=== PATIENT | female | born 1985 | race Caucasian/White ===

== ENCOUNTER → 2016-12-04 | Outpatient (CLI) | payer OTHER ==
[~2016-12-04] MED LIST: ACET-749 PO; HYDR-5688 PO; MTR600X PO; PRENTAB26 PO
--- NOTE | 2016-12-04 13:27 | MAMMOGRAPHY REPORT ---
BILATERAL DIGITAL DIAGNOSTIC MAMMOGRAM TOMOSYNTHESIS WITH CAD AND TARGETED LEFT ULTRASOUND: 12/04/2016 CLINICAL HISTORY: 31 year-old woman presents for diagnostic evaluation. Approximately 2 months ago s he noticed an indentation or retraction of her left nipple, which is asymmetric compared to the right side. On recent physical exam, her provider also noted the retraction and recommended diagnostic as sessment. No skin changes or nipple discharge. No family history of breast cancer. TECHNIQUE: Bilateral breast tomosynthesis in addition to standard 2D mammography was performed. Curre nt study was also evaluated with a Computer Aided Detection (CAD) system. COMPARISON: No prior exams were available for comparison. BREAST COMPOSITION: The tissue of both breasts is heterogeneously dense, which may obscure small mas ses. FINDINGS: There is no obvious mammographic mass, focal area of architectural distortion or suspiciou s microcalcifications. Targeted ultrasound was performed in the periareolar and subareolar left breast. In the left retroar eolar breast, there is a lobulated circumscribed hypoechoic solid-appearing mass with posterior acous tic enhancement directly under the nipple. It measures 11.5 x 7.2 x 11.6 mm. It is unclear if this is related to the nipple retraction but given the solid nature definitive characterization with tissu e sampling is recommended. IMPRESSION: ACR BI-RADS CATEGORY 4: SUSPICIOUS, TARGETED ULTRASOUND ACR BI-RADS CATEGORY 4: SUSPICIO US 1. Ultrasound guided core biopsy is recommended for an indeterminate solid 11.6 mm mass in the retro areolar left breast. It is unclear if this is related to the patient's nipple retraction, and clinic al follow-up may still be needed for that finding. This mass is not well seen mammographically. 2. No other suspicious mammographic abnormality identified bilaterally. These results and recommendations were discussed with the patient at the time of the exam. She tenta tively schedule the left breast biopsy prior to leaving our department. Approximately 10% of breast cancers are not detected with mammography. A negative mammographic report should not delay biopsy if a clinically suggestive mass is present. Ella Bettencourt M.D. ay/:12/04/2016 11:59:40 Geopolitics Teacher: Aggie Chamberlain, [facility] letter sent: Abnormal 4/5 BI-RADS Code: ACR BI-RADS Category 4: Suspicious Ultrasound BI-RADS: ACR BI-RADS Category 4: Suspici ous
== END | disposition home or self-care (01) ==
LOC: C.MAMM 11:19
PROVIDERS: ATTEND Physician Assistant
DX: N64.53 Retraction of nipple (principal); N63 Unspecified lump in breast

== ENCOUNTER → 2016-12-16 | Outpatient (CLI) | payer OTHER ==
--- NOTE | 2016-12-16 11:49 | Discharge Instructions ---
Discharge Instructions Procedure Procedure Date: Dec 16, 2016. Reason for visit: Left Mass. Discharge Discharge Date: Dec 16, 2016. Discharge Diagnosis: post left breast ultrasound guided core biopsy Instructions Activity Recommendations: Additional Limitations (see below) Return to School/Work: no limitations Recommended Home Diet: No Limitations Provider Instructions: ACTIVITY RECOMMENDATIONS: * No lifting, pushing, pulling or exercising the affected side for three days. RETURN TO SCHOOL/WORK: * You may return to work/school after the procedure, but do not perform any strenuous activities for 24 to 48 hours. MEDICATIONS: * Tylenol (two 325 mg) every four to six hours if needed for mild pain (if not allergic to Tylenol). DIET: * Resume previous diet. SPECIAL CARE INSTRUCTIONS: * Keep biopsy site dry for 24 hours. May shower after 24 hours, but do not soak (bathe) incision. * May remove Tegaderm (plastic patch) tomorrow AFTER showering. * Leave the steri-strips on for one week. Allow the steri-strips to fall off by themselves. If not off after one week, you may remove them. You may place a Bandaid crosswise over the strips, if desired. * Apply ice 10 minutes on and 10 minutes off as needed. * Wear a bra at bedtime to sleep more comfortably for 2-3 days. * Your referring physician should have the results after approximately 5 to 7 business days. * Call for unusual bleeding, fever, drainage, etc or if you have any questions call [phone] during normal business hours or after hours call Dr Bettencourt, . FOLLOW UP VISIT: Follow-up with Referring Physician as scheduled. Allergies Coded Allergies: No Known Allergies (Verified , 09/25/15) Mary Bejarano Recommendations: Call your doctor if: * Temperature above 101 degrees * Pain not relieved by pain medicine ordered * There is increased drainage or redness from any incision * You have any unanswered questions or concerns. Your Doctors Instructions noted above were prepared by provider Ella Bettencourt. Patient Signature Section: Patient Instructions Signature Page Annita Davisn Patient (or Guardian) Signature/Date: I have read and understand the instructions given to me by my caregivers. Caregiver/RN/Doctor Signature/Date: The above-named patient and/or guardian has received patient instructions on this date. + Original Patient Signature Page (only) stays with chart. Please make copy for patient.
--- NOTE | 2016-12-16 13:16 | MAMMOGRAPHY REPORT ---
THIS REPORT HAS BEEN AMENDED. ULTRASOUND GUIDED BIOPSY LEFT BREAST: 12/16/2016 CLINICAL HISTORY: 31 year old woman initially presented with left nipple retraction. She was found t o have a circumscribed solid 12 mm mass in the retroareolar left breast and now presents for ultrasou nd-guided core biopsy. COMPARISON: Comparison is made to exams dated: 12/04/2016 ultrasound and 12/04/2016 mammogram [facility]. PATIENT CONSENT: The procedure, risks and benefits were discussed with the patient and informed writt en consent was obtained. Specific risks to this procedure include: bleeding, infection, puncture of a djacent structure, nontargeted biopsy, sampling error, pain, medication reaction and metal allergy. PROCEDURE DESCRIPTION: A time out was performed and the left breast was agreed as the site of biopsy. The skin was prepped and draped in the usual sterile fashion. The solid mass in the retroareolar lef t breast was chosen as the target for biopsy. Subcutaneous and intraparenchymal 1% buffered lidocaine without epinephrine was administered as local anesthesia. A skin incision was made. Through the inc ision, 4 samples were taken with a 14 gauge Achieve biopsy device. A metallic marker was placed at th e biopsy site. Hemostasis was achieved after manual compression. The patient tolerated the procedure well and there was no immediate complication. The samples were sent to pathology in an appropriately labeled container. Post procedure left CC and ML tomosynthesis images were obtained. A new ribbon-shaped biopsy marker clip and no significant hematoma is seen in the retroareolar left breast. COMPARISON: Comparison is made to exams dated: 12/04/2016 ultrasound and 12/04/2016 mammogram - [facility]. An ultrasound guided biopsy using real-time ultrasound was performed for the abnormality located in t he left breast central to the nipple in the retroareolar region. The skin was prepped in the usual m sakina. A biopsy needle was placed adjacent to the abnormality under ultrasound guidance. Once the n eedle was documented to be in the correct location, a specimen was obtained using an automated biopsy gun. The specimen was sent to the laboratory for pathological analysis. IMPRESSION: ULTRASOUND GUIDED BIOPSY Status post ultrasound guided core biopsy of an indeterminate solid mass in the left retroareolar alison ast, with biopsy marker placed at the site. The patient will receive notification of the biopsy results from her referring physician. It remains unclear if this mass is related to the patient's left nipple retraction and clinical follo w-up is still recommended. Ella Bettencourt M.D. ay/:12/16/2016 12:05:57 Linesperson: Aggie Chamberlain, [facility] AMENDMENT: 12/25/2016 Ella Bettencourt M.D. Pathology results from the ultrasound guided core biopsy of a circumscribed mass in the retroareolar left breast yielded a squamous cyst. The pathology results are concordant with the imaging appearanc e. However, the patient initially presented with new left nipple retraction and it is unclear if thi s squamous cyst could cause the left breast nipple retraction. Therefore, further evaluation with anderson rgical consultation is recommended. These new recommendations were discussed with the patient's prov ider, Onel Witt.
--- NOTE | 2016-12-16 13:16 | MAMMOGRAPHY REPORT ---
UNILATERAL LEFT DIGITAL DIAGNOSTIC MAMMOGRAM TOMOSYNTHESIS: 12/16/2016 CLINICAL HISTORY: Status post ultrasound guided core biopsy of a solid circumscribed mass in the retr oareolar left breast. Please refer to the report from left breast ultrasound guided core biopsy performed at the same time for full detail. IMPRESSION: POST PROCEDURE IMAGING FOR MARKER PLACEMENT Please refer to the report from left breast ultrasound guided core biopsy performed at the same time for full detail. Approximately 10% of breast cancers are not detected with mammography. A negative mammographic report should not delay biopsy if a clinically suggestive mass is present. Ella Bettencourt M.D. ay/:12/16/2016 11:50:11 Microstrategy Architect: Aggie Chamberlain, [facility] BI-RADS Code: Post Procedure Imaging For Marker Placement
== END | disposition home or self-care (01) ==
LOC: C.MAMM 10:52
PROVIDERS: ATTEND Physician Assistant
DX: N63 Unspecified lump in breast (principal)

== ENCOUNTER → 2017-02-18 | Day surgery (SDC) | payer OTHER ==
[2017-01-31 12:46] VITALS: Ht 165.1 cm; Wt 53.2 kg
[~2017-02-18] VITALS: Ht 165.1 cm; Wt 53.2 kg
[~2017-02-18] MED LIST changes: -ACET-749 PO; +ATROPINE SULFATE 0.1 MG/ML 5ML SYR IV PRN; +BUPIVACAINE 0.25% 30 ML VIAL ONE; +BUPIVACAINE 0.5 % 5 MG/1 ML MPF 30ML VIAL ONE; +CEFAZOLIN 2000 MG/60 ML D5W IV SCH; +DEXAMETHASONE SOD INJ 4 MG/ML VIAL ONE; +EpHEDrine SULFATE INJ 50 MG/ML AMP IV PRN; +FENTANYL CITRATE INJ 50 MCG/1 ML 2 ML VIAL ONE; +FLUMAZENIL 0.1 MG/1 ML 10 ML VIAL IV PRN; +GENTIAN VIOLET TOP SOLN DROP CHARGE ONE; +HYDROCODONE/ACETAMOPHEN 5/325MG TAB PO PRN; +HYDROmorphone INJ 1 MG/ML SYR IV PRN; +LACTATED RINGER'S 1000ML 1,000 ML IV SCH; +LIDOCAINE HCL 1% 20 ML VIAL ONE; +LIDOCAINE HCL 2% 2 ML VIAL (20MG/ML) ONE; +LIDOCAINE/EPINEPHRINE 1% INJ 50 ML VIAL ONE; +MIDAZOLAM HCL 1 MG/ML 2ML VIAL ONE; -MTR600X PO; +NALOXONE HCL 0.4 MG/1 ML VIAL/CARP IV PRN; +ONDANSETRON INJ 2 MG/ML 2 ML VIAL IV PRN; +ONDANSETRON INJ 2 MG/ML 2 ML VIAL ONE; -PRENTAB26 PO; +PROMETHAZINE HCL INJ 12.5 MG in SODIUM CHLORIDE 0.9% 50ML 50 ML IV PRN; +PROPOFOL IV EMULSION 10 MG/ML 20 ML VIAL IV ONE; +SODIUM CHLORIDE 0.9% 1000ML 1,000 ML IV SCH
--- NOTE | 2017-02-18 11:42 | History & Physical Bridge - SC ---
H&P Re-Evaluation Bridge Note: I have examined the patient, reviewed the History & Physical and in the interval since the performance of the History & Physical I have noted the following changes of clinical significance: No changes noted
--- NOTE | 2017-02-18 12:35 | [facility] Operative Report ---
Operative Report Operative Date Feb 18, 2017. Pre-Operative Diagnosis Lef Breast Squamous Cyst; Retraction of Nipple, Left Post-Operative Diagnosis same as preop Procedure(s) Performed excision Lt breast mass (Dr Plasencia) repair inverted nipple (Dr Aguilera) Surgeon Dr. Plasencia/Dr. Aguilera Maintenance Shop Clerk Surgeon(s) Trish Guzman PA-C Findings 1.5 cm mass- likely epidermoid cyst Specimens A: Left Breast Mass (out at 1215), sent fresh to lab. Anesthesia gen/ LMA Complication(s) None Disposition Recovery Room / PACU I attest to the content of the Intraoperative Record and any orders documented therein. Any exceptions are noted below.
--- NOTE | 2017-02-18 12:37 | [facility] Post Operative Brief Note ---
Immediate Operative Summary Operative Date Feb 18, 2017. Pre-Operative Diagnosis Lef Breast Squamous Cyst; Retraction of Nipple, Left Post-Operative Diagnosis same as preop Procedure(s) Performed excision Lt breast mass (Dr Plasencia) repair inverted nipple (Dr Aguilera) Surgeon Dr. Plasencia/Dr. Aguilera Notch Machine Operator Surgeon(s) Trish Guzman PA-C Estimated Blood Loss 1ML Findings cyst beneath left nipple Specimens A: Left Breast Mass (out at 1215), sent fresh to lab. Anesthesia general Complication(s) None Disposition Recovery Room / PACU
--- NOTE | 2017-02-18 12:43 | Discharge Instructions-SurgCtr ---
Discharge Instructions Date of Service Feb 18, 2017. Visit Reason for Visit: Left Breast Squamous Cyst; Retraction Of Nipple Discharge Discharge Diagnosis / Problem: Lt breast mass, inverted nipple Discharge Goals Goal(s): Decrease discomfort, Improve function, Improve disease control Activity Recommendations Activity Limitations: as noted below Lifting Limitations: no more than 10 pounds Exercise/Sports Limitations: until after follow-up appointment May Resume Sexual Activity: after follow-up appointment Shower/Bathe: keep incision dry (until after Dr Aguilera checks you) Driving or Machine Use: resume 1 day after discharge Anesthesia . Post Anesthesia Instructions: If you have had General Anesthesia or IV Sedation: * Do not drive today. * Resume driving when surgeon permits. * Do not make important decisions or sign legal documents today. * Call surgeon for: 1. Temperature elevations greater than 101 degrees F. 2. Uncontrollable pain. 3. Excessive bleeding. 4. Persistent nausea and vomiting. 5. Medication intolerance (nausea, vomiting or rash). * For nausea and vomiting use only clear liquids such as: tea, soda, bouillon until nausea subsides, then gradually increase diet as tolerated. * If you have any concerns or questions, call your surgeon's office. If physician is unavailable and it is an emergency, call 911 or go to the nearest emergency room. . Instructions / Follow-Up Instructions / Follow-Up keep appointment with Dr Aguilera Diet Recommendations Home Diet: resume previous diet Procedures Procedures Performed: excision Lt breast mass (Dr Plasencia) repair inverted nipple (Dr Aguilera) Pending Studies Studies pending at discharge: no Medical Emergencies . Who to Call and When: Medical Emergencies: If at any time you feel your situation is an emergency, please call 911 immediately. . Non-Emergent Contact Non-Emergency issues call your: Primary Care Provider, Surgeon . . "Provider Documentation" section prepared by Rajinder Plasencia. .
--- NOTE | 2017-02-18 13:04 | OPERATIVE REPORT ---
DATE OF OPERATION: 02/18/2017 NAME OF OPERATION: Excision of left breast mass with plastic surgery repair of inverted nipple. STAFF SURGEON: Dr. Plasencia and Dr. Aguilera. CHEMOTHERAPIST: Trish Guzman PA-C. ANESTHESIA: General. PROCEDURE: The patient was brought in the operating room and placed on the operating table in supine position. Her left breast was prepped and draped in usual fashion around a needle which had been placed at approximately 3 o'clock into the left subareolar space. Incision was made at the base of the needle from approximately 7 o'clock to 2 o'clock carrying dissection down into the area just below the nipple identifying what appeared to be a sebaceous cyst. The needle was transected. The cyst was dissected from surrounding tissue, sent for routine pathology. After appropriate hemostasis and irrigation, Dr. Aguilera proceeded with plastic surgery closure of the inverted nipple. The patient tolerated the procedure well, was taken to the recovery room in stable condition. I attest to the content of the Intraoperative Record and any orders documented therein. Any exception s are noted below.
[2017-02-18 13:12] VITALS: TEMP 36.6
--- NOTE | 2017-02-18 13:25 | Anesthesia Progress Nt - [facility] ---
Anesthesia Post Op Note Date & Time Feb 18, 2017 at 13:25 Vital Signs Pain Intensity: 0 Vital Signs Past 12 Hours Date Time Temp Pulse Resp B/P (MAP) Pulse Ox O2 Delivery O2 Flow Rate FiO2 02/18/17 13:07 83 21 96 02/18/17 13:07 82 21 02/18/17 13:06 121/75 02/18/17 13:06 121/75 02/18/17 13:05 37.5 97 Room Air 02/18/17 13:02 84 18 02/18/17 13:02 81 18 97 02/18/17 13:02 84 18 02/18/17 13:02 81 18 97 02/18/17 13:01 121/64 02/18/17 12:58 80 19 02/18/17 12:58 79 19 98 02/18/17 12:56 118/65 02/18/17 12:53 82 18 02/18/17 12:53 83 18 100 02/18/17 12:52 76 16 02/18/17 12:52 74 16 100 02/18/17 12:51 111/66 02/18/17 12:47 82 17 100 02/18/17 12:47 82 17 02/18/17 12:46 120/61 02/18/17 12:43 118/63 02/18/17 12:42 83 02/18/17 12:42 36.8 82 18 118/63 99 Mask 6 02/18/17 12:42 83 98 02/18/17 10:23 36.5 80 16 114/65 (81) 99 Room Air Notes Mental Status: alert / awake / arousable, participated in evaluation Pt Amnestic to Procedure: Yes Nausea / Vomiting: adequately controlled Pain: adequately controlled Airway Patency, RR, SpO2: stable & adequate BP & HR: stable & adequate Hydration State: stable & adequate Anesthetic Complications: no major complications apparent
[2017-02-18 13:45] VITALS: BP 110/71; PULSE 72; O2SAT 97
--- NOTE | 2017-02-18 14:33 | OPERATIVE REPORT ---
DATE OF OPERATION: 02/18/2017 PREOPERATIVE DIAGNOSIS: Left breast mass with nipple inversion. POSTOPERATIVE DIAGNOSIS: Same. PROCEDURE: Excision of left breast mass with correction of inverted nipple. SURGEONS: Dr. Sandie Aguilera and Dr. Rajinder Plasencia. PST MANAGER: Trish Guzman. LILI-Marcelo ANESTHESIA: General. COMPLICATIONS: None. INDICATION FOR THE PROCEDURE: The patient is a 31-year-old female who was noted to have a subareolar mass and was scheduled to have this excised. Due to the nipple retraction and inversion as a result of formation of this mass, I was consulted for possible correction. Consent was obtained for the procedure. DESCRIPTION OF PROCEDURE: I was scrubbed throughout the entire procedure including the excision of the mass. Incision was made from the 7 o'clock to [address] Plasencia, who identified the cyst. His cyst excision has been separately dictated. Following removal of the cyst, this resulted in transection of the duct allowing release of the tethered nipple. At this point, I used a 3-0 Vicryl suture to close the subareolar space. Following this, I placed horizontal mattress sutures through the nipple-areolar complex through the nipple in order to provide projection. I then closed the incision using 3-0 Vicryl interrupted dermal sutures and 4-0 chromic half buried horizontal mattress sutures. Following this, I was dissatisfied with the projection of the nipple and the nipple sutures were released and placed again taking deeper bites through the base of the nipple to allow greater projection. Once this was completed, the wound was dressed with Xeroform, dry dressings, and [place] foam. Surgical bra was placed. The procedure was tolerated well. The patient was awakened and transferred to recovery in satisfactory condition. I attest to the content of the Intraoperative Record and any orders documented therein. Any exception s are noted below.
--- NOTE | 2017-02-18 16:08 | MAMMOGRAPHY REPORT ---
UNILATERAL LEFT DIGITAL DIAGNOSTIC MAMMOGRAM TOMOSYNTHESIS: 02/18/2017 CLINICAL HISTORY: Preoperative needle and wire localization for a biopsy proven squamous cyst in the retroareolar left breast. Please refer to the report from left breast ultrasound-guided needle localization with imaging perfor med at the same time for full detail. IMPRESSION: Please refer to the report from left breast ultrasound-guided needle localization with imaging perfor med at the same time for full detail. Approximately 10% of breast cancers are not detected with mammography. A negative mammographic report should not delay biopsy if a clinically suggestive mass is present. Ella Bettencourt M.D. ay/:02/18/2017 12:58:09 Boxing Instructor: Aggie WEBBER(Cindy)(M), [facility] BI-RADS Code: n/a
--- NOTE | 2017-02-18 16:08 | MAMMOGRAPHY REPORT ---
NEEDLE LOCALIZATION LEFT BREAST: 02/18/2017 CLINICAL HISTORY: 31 year-old woman presents for preoperative localization and surgical excision of a squamous cyst in the subareolar left breast. COMPARISON: Comparison is made to exams dated: 12/04/2016 mammogram, 12/04/2016 ultrasound, 12/16/2016 mammogram, and 12/16/2016 ultrasound biopsy - [facility]. PATIENT CONSENT: The risks of the procedure were explained to the patient and informed consent was ob tained. The patient denied allergy to lidocaine and also denied eating or drinking anything this mor jessy that would preclude anesthesia. PROCEDURE DESCRIPTION: Post procedure mammograms and ultrasound core biopsy dated 12/16/2016 were rev iewed. The mass in the subareolar left breast is the intended target for preoperative localization. Targeted ultrasound was performed in the subareolar left breast and a lobulated hypoechoic mass with posterior acoustic enhancement is again identified. This is the target for preoperative localizatio n. 1% buffered Lidocaine without epinephrine was administered as local anesthesia. A 5cm Herrera II needle and wire combination was inserted into the left breast, through the subareolar mass, via a lat eral approach. Optimal positioning was confirmed and the wire was locked in place, leaving both the needle and wire within the breast, as per surgeon's preference. The entire procedure including appro ach and needle length were discussed with the operating surgeon prior to surgery. The patient tolera rowena the procedure well and there was no immediate complication. She was sent to the operating room i n satisfactory condition. A specimen radiograph was not obtained. IMPRESSION: NEEDLE LOCALIZATION Status post preoperative needle and wire localization for a biopsy proven squamous cyst in the subare olar left breast. The patient will receive notification of the final pathology results from her referring physician. Ella Bettencourt M.D. ay/:02/18/2017 14:42:10 Metal Or Wood Blocker: Aggie WEBBER(Cindy)(Mildred), [facility]
== END | disposition home or self-care (01) ==
LOC: X.SURG 09:52
PROVIDERS: ATTEND Surgery
DX: N60.02 Solitary cyst of left breast (principal); N64.53 Retraction of nipple; Z87.891 Personal history of nicotine dependence; Z80.3 Family history of malignant neoplasm of breast

== ENCOUNTER → 2017-07-28 | Outpatient (CLI) | payer OTHER ==
[~2017-07-28] MED LIST changes: -ATROPINE SULFATE 0.1 MG/ML 5ML SYR IV PRN; -BUPIVACAINE 0.25% 30 ML VIAL ONE; -BUPIVACAINE 0.5 % 5 MG/1 ML MPF 30ML VIAL ONE; -CEFAZOLIN 2000 MG/60 ML D5W IV SCH; -DEXAMETHASONE SOD INJ 4 MG/ML VIAL ONE; -EpHEDrine SULFATE INJ 50 MG/ML AMP IV PRN; -FENTANYL CITRATE INJ 50 MCG/1 ML 2 ML VIAL ONE; -FLUMAZENIL 0.1 MG/1 ML 10 ML VIAL IV PRN; -GENTIAN VIOLET TOP SOLN DROP CHARGE ONE; -HYDROCODONE/ACETAMOPHEN 5/325MG TAB PO PRN; -HYDROmorphone INJ 1 MG/ML SYR IV PRN; -LACTATED RINGER'S 1000ML 1,000 ML IV SCH; -LIDOCAINE HCL 1% 20 ML VIAL ONE; -LIDOCAINE HCL 2% 2 ML VIAL (20MG/ML) ONE; -LIDOCAINE/EPINEPHRINE 1% INJ 50 ML VIAL ONE; -MIDAZOLAM HCL 1 MG/ML 2ML VIAL ONE; -NALOXONE HCL 0.4 MG/1 ML VIAL/CARP IV PRN; -ONDANSETRON INJ 2 MG/ML 2 ML VIAL IV PRN; -ONDANSETRON INJ 2 MG/ML 2 ML VIAL ONE; -PROMETHAZINE HCL INJ 12.5 MG in SODIUM CHLORIDE 0.9% 50ML 50 ML IV PRN; -PROPOFOL IV EMULSION 10 MG/ML 20 ML VIAL IV ONE; -SODIUM CHLORIDE 0.9% 1000ML 1,000 ML IV SCH
--- NOTE | 2017-07-28 15:04 | MAMMOGRAPHY REPORT ---
BILATERAL DIGITAL DIAGNOSTIC MAMMOGRAM TOMOSYNTHESIS WITH CAD: 07/28/2017 CLINICAL HISTORY: 31-year-old woman with a palpable epidermal inclusion cyst in the retroareolar left breast that was subsequently surgically excised. She presents to establish new baseline after surge ry. TECHNIQUE: Bilateral breast tomosynthesis in addition to standard 2D mammography was performed. Curre nt study was also evaluated with a Computer Aided Detection (CAD) system. COMPARISON: Comparison is made to exams dated: 02/18/2017 mammogram, 02/18/2017 localization, 7 ultrasound biopsy, 12/16/2016 mammogram, 12/04/2016 ultrasound, and 12/04/2016 mammogram - [facility]. BREAST COMPOSITION: The tissue of both breasts is heterogeneously dense, which may obscure small mas ses. FINDINGS: A linear scar marker overlies the lateral anterior left breast. No obvious new mass, archi tectural distortion or , asymmetry cluster of suspicious microcalcifications is seen. IMPRESSION: ACR BI-RADS CATEGORY 2: BENIGN There is no mammographic evidence of malignancy in the breasts. Unless there is a new palpable bob rn, would recommend annual screening mammography beginning at age 40. The patient has been verbally notified of the results. Approximately 10% of breast cancers are not detected with mammography. A negative mammographic report should not delay biopsy if a clinically suggestive mass is present. Ella Bettencourt M.D. ay/:07/28/2017 14:36:53 Innersole Maker: Denisha WEBBER(Cindy)(Mildred), [facility] letter sent: Normal 1/2 BI-RADS Code: ACR BI-RADS Category 2: Benign
== END | disposition home or self-care (01) ==
LOC: C.MAMM 13:49
PROVIDERS: ATTEND Physician Assistant
DX: Z09 Encounter for follow-up examination after completed treatment for conditions other than malignant neoplasm (principal); Z98.890 Other specified postprocedural states; Z87.898 Personal history of other specified conditions

== ENCOUNTER 2025-05-30 07:30 | Inpatient (IN) ==
[2025-05-30] MEDS ORDERED: LIDOCAINE 1% LOCAL 20 ML VIAL INFIL PRN (07:39)
[2025-05-30] MEDS ORDERED: ACETAMINOPHEN 500 MG TAB PO PRN (07:39)
[2025-05-30] MEDS ORDERED: CALCIUM CARBONATE 500 MG CHEWABLE TAB PO PRN (07:39)
[2025-05-30] MEDS ORDERED: OXYTOCIN 30 UNITS/NSS 30 UNITS/500 ML BAG IV PRN ×2 (07:39→14:35)
[2025-05-30 08:08] LABS: Hematocrit (blood only) 36.1 % (37.0-47.0); Hemoglobin 12.6 g/dL (12.0-16.0); Mean Corpuscular Hemoglobin 30.9 pg (25.0-34.0); Mean Corpuscular Volume 88.5 fL (80.0-100.0); Platelet Count 299 K/uL (130-400); RDW Standard Deviation 47.2 fL (36.4-46.3); Red Blood Count 4.08 M/uL (4.20-5.40); White Blood Count 10.96 K/ul (4.8-10.8)
[2025-05-30] MEDS: PENICILLIN GK 6 MU in DEXTROSE 5% 250 ML IV STA (08:23)
[2025-05-30] MEDS: LACTATED RINGER'S 1,000 ML IV PRN (08:24)
[2025-05-30] MEDS: OXYTOCIN 30 UNITS/NSS 30 UNITS/500 ML BAG IV PRN (08:49)
--- NOTE | 2025-05-30 09:25 | History & Physical Report ---
Date of Service May 30, 2025 Assessment & Plan (1) Polyhydramnios affecting : Plan: Admit to L&D. EFM/toco. Labs. Glucose on admit and hourly in active labor. Penicillin for GBS+ Pitocin OK for epidural if she desires. (2) Elderly multigravida: Admission and Anticipated Discharge Date Admission Date: May 30, 2025 History of Present Illness Chief Complaint: IOL Primary Care Provider: NO PCP 39yo @ 37 08/27, IOL for polyhydramnios and AMA. and Delivery Plans AMA>40@del *Anatomy Scan @ 20wks * Echo 22-24wks (02/15/25 @ [facility] [place]---normal *Growth scan @32wks - EFW 22% at 30wk - JBS *Weekly NST's @36 wks *Twice weekly NST @38wks *Weekly GILBERT's @38wks *Deliver by 40 wks Current smoker Gestational Diabetes Growth u/s q 4 weeks Polyhydramnios *Weekly NSTs if fluid 12 or greater - started at 31w4d - JBS *Weekly AFIs @ Dx *If pocket >16 refer to MFM *Deliver between [id number] IOL 05/30/25 GBS+ - Treat in labor Allergies Allergy/AdvReac Type Severity Reaction Status Date / Time No Known Allergies Allergy Verified 05/27/25 08:31 Home Medications Medication Instructions Recorded Confirmed Type PNV no.[id number] 1 tab PO 10/20/24 05/27/25 History [ Gummies] acetone (urine) test (Ketone Urine #50 ea 03/18/25 05/27/25 Rx Test strips) blood-glucose meter (True Metrix #1 ea 03/21/25 05/27/25 Rx Glucose Meter) ferrous sulfate 325 mg (65 mg 325 mg PO Q OTHER DAY 03/28/25 05/30/25 History iron) tablet (FeroSul) blood sugar diagnostic (True #400 ea 04/22/25 05/27/25 Rx Metrix Glucose Test Strip) lancets 28 gauge (TRUEplus Lancets) #400 ea 04/22/25 05/27/25 Rx Patient History Medical History (Updated 05/16/25 @ 14:05 by Tanisha Hagan DO) History of chicken pox Cyclical pelvic pain Toe contusion Crush injury of hand Wrist sprain Lytic bone lesions on xray TFCC (triangular fibrocartilage complex) injury Paresthesias Migraine headache Surgical History (Updated 10/20/24 @ 13:24 by Erin Cordero) S/P breast lumpectomy S/P wisdom tooth extraction H/O dilation and curettage MAB x2 H/O shoulder surgery Family History (Updated 10/20/24 @ 13:12 by Erin Cordero) Brother FH: testicular cancer Father FH: testicular cancer Family/Other Breast cancer Paternal great grandmother Mother Emphysema of lung Denies family history of Ovarian cancer Prostate cancer Myocardial infarction Colorectal cancer Social History (Updated 10/20/24 @ 13:13 by Erin Cordero) Smoking Status: Current every day smoker Tobacco Type: Cigarettes Cigarettes Per Day: 5; Second Hand Exposure: No; Do You Dip or Chew Tobacco: No; Tobacco Cessation Education Requested by Patient: No Hx Alcohol Use: No Hx Substance Use: No Preferred Language: Cypriot Communication Ability: Effective Title I Director Required: No Beliefs That Will Affect Care: None marital status: marital status details: Flynn Watt [phone] Current Living Situation: Spouse Current Living Situation Comment: lives with spouse, 2 children, dog current occupational status: employed current occupation: [employer] Other Information That Helps Us Care for You: No Feels Safe at Home: Yes Safety Concerns: Feels Safe At This Time Review of Systems All systems reviewed & are unremarkable except as noted in HPI & below Physical Exam Physical Exam: /-1 FHT Cat 1 [place] irreg Constitutional: WD/WN, vitals as above Respiratory: normal respiratory effort, lungs clear to auscultation no respiratory distress Cardiovascular: Rate/Rhythm: regular rate and regular rhythm Gastrointestinal (Abdomen): Inspection/Auscultation: abdomen normal to inspection Percussion/Palpation: abdomen soft; abdomen nontender Gravid. No s/s chorio or abruption. Skin: no rashes, warm and dry Psychiatric: A+Ox3, euthymic affect Results & Data Vital Signs (Past 12 Hours) Vital Signs Temp Pulse Resp BP 05/30/25 08:49 104 H 120/74 05/30/25 07:44 129 H 122/71 05/30/25 07:41 36.7 C 20 Coding Level of Care Code None Diagnoses Polyhydramnios affecting O40.9XX0 Elderly multigravida O09.529
[2025-05-30] MEDS: PENICILLIN GK 3 MU in DEXTROSE 5% 100 ML IV PRN (12:03)
--- NOTE | 2025-05-30 13:37 | Labor Progress Brief Note ---
Date of Service May 30, 2025 Subjective Declines epidural at this time. FHT Cat 1 [place] Q 2 5-6/100/-1 AROM clear fluid. Assessment & Plan Admission and Anticipated Discharge Date Admission Date: May 30, 2025 Results & Data Vital Signs (Past 12 Hours) Vital Signs Temp Pulse Resp BP 05/30/25 13:06 73 111/75 05/30/25 12:05 79 114/71 05/30/25 11:30 36.9 C 82 18 129/66 05/30/25 10:31 95 H 132/68 05/30/25 09:30 90 116/66 05/30/25 08:49 104 H 120/74 05/30/25 07:44 129 H 122/71 05/30/25 07:41 36.7 C 20 Coding Level of Care Code None
--- NOTE | 2025-05-30 14:29 | Delivery Summary ---
Vaginal Delivery Summary Date of Service May 30, 2025 Vaginal Delivery Summary and 1st Degree LAC Vaginal Delivery Summary: Pre-delivery diagnoses: 39yo @ 37 3/7, IOL for AMA and polyhydramnios, GDMA1, GBS+ Post-delivery diagnoses: same Procedure: spontaneous vaginal delivery Surgeon: Tanisha Hagan DO Complications: none Findings: Viable female . Apgars: 8/9. Weight pending, please see nursery records Estimated QBL: 100ml Description of delivery: The patient progressed to complete with epidural anesthesia. She felt urge to have bowel movement, alerted RN, who pressed emergency paz because baby was beginning to deliver with contraction. I was called to room, and immediately came to room, and baby was crying in mother's arms. Delayed cord clamping was employed, and the cord was doubly clamped and cut. Cord blood was obtained. The placenta was delivered spontaneously intact with a 3-vessel cord. The uterus and vagina were swept of clots and debris. IV pitocin was given. The uterus became firm. The cervix, vagina, and perineum were inspected. 1st degree perineal laceration noted, 1% lidocaine injected, and repaired with 3-0 Vicryl in standard fashion. Excellent hemostasis was observed. The mother and baby are recovering in stable and good condition in the room. Sponge, needle and instrument counts were correct x 2. Tanisha Hagan DO [facility] Vaginal Delivery Charge Vaginal Delivery Codes: 79026 global code for the antepartum, delivery, and post- Delivery Type Details: and 1st Degree LAC
[2025-05-30] MEDS ORDERED: ACETAMINOPHEN 325 MG TAB PO PRN (14:35)
[2025-05-30] MEDS ORDERED: DIPHTHER/TETAN/PERTUS Vaccine (Tdap, Adol/Adult) 0.5mL IM ONE (14:35)
[2025-05-30] MEDS ORDERED: HYDROCORTISONE ACETATE 25 MG SUPP PR PRN (14:35)
[2025-05-30] MEDS ORDERED: IBUPROFEN 600 MG TAB PO PRN (14:35)
[2025-05-30] MEDS: BENZOCAINE 20% SPRY 85 APPLN/85 GM CAN EXT PRN (16:32)
[2025-05-30] MEDS: DOCUSATE SODIUM 100 MG CAP PO SCH (20:50)
[2025-05-31 03:51] VITALS: RESP 16; TEMP 97.9
--- NOTE | 2025-05-31 06:28 | Obstetrical Progress Note ---
Date of Service May 31, 2025 Assessment & Plan (1) examination following vaginal delivery: (2) GBS (group B Streptococcus carrier), +RV culture, currently : (3) Polyhydramnios affecting : (4) Gestational diabetes: (5) Tobacco smoking affecting : (6) Elderly multigravida: Plan 39 y/o ppd #1 s/p . complicated by AMA, GDM, polyhydramnios, GBS(+), and tobacco use. Feels well today. Vitals stable routine post- care encourage ambulation pain controlled with ibuprofen Hgb stable anticipate home discharge today, follow up with Dr. Hagan in 6 weeks. Admission and Anticipated Discharge Date Admission Date: May 30, 2025 Supervising Physician Co-Signing Physician Notes Resident Physician Supervision Note: I was present with Dr. David during the history and exam. I discussed the case with the resident and agree with the findings and plan as documented in the note. Any exceptions or clarifications are listed here: PPD#1 doing well, desires DC home, reviewed instructions, followup 6w PP. Documented By: Tanisha Hagan, DO Subjective 39 y/o ppd #1 s/p . complicated by AMA, GDM, polyhydramnios, GBS(+), and tobacco use. Feeling well today, no issues overnight. Having bowel cramping/bloating - took Colace to help with BM, otherwise no concerns. Ambulation: ambulating normally Voiding: no voiding problems Passing Gas:: Yes Diet Tolerance:: regular diet Lochia:: Small Feeding Type:: bottle feeding Current Pain Level: minimal Resting comfortably this AM in NAD. Denies JUAREZ, CP, SOB, N/V/D, LE pain/swelling. Review of Systems Review of Systems: as above Physical Exam Physical Exam: General: patient resting comfortably, NAD, non-toxic in appearance, A&Ox4, answers questions appropriately. Skin: warm, dry, intact HEENT: atraumatic, normocephalic. NC/AT, anicteric sclera, conjunctiva without injection, moist mucus membranes. Heart: clinically well perfused Lungs: equal rise & fall of chest, normal work of breathing, no respiratory distress Abd: +BS, soft, NT/ND, uterine fundus firm at umbilicus Ext: no LE edema or deep calf pain, Shaneka's neg. Neuro: no focal neurologic deficits, moving all extremities. Results & Data Vital Signs (Past 12 Hours) Vital Signs Temp Pulse Resp BP Pulse Ox O2 Del Method 05/31/25 03:45 36.6 C 69 16 129/82 97 Room Air 05/31/25 00:10 36.4 C L 71 18 114/80 98 Room Air 05/30/25 19:40 36.8 C 79 16 123/78 96 Room Air
[2025-05-31 07:00] LABS: Hematocrit (blood only) 35.5 % (37.0-47.0); Hemoglobin 12.5 g/dL (12.0-16.0)
[2025-05-31] MEDS: PRENATAL VITAMIN 1 TAB PO SCH (07:05)
[2025-05-31 07:27] VITALS: O2SAT 96
[2025-05-31 11:50] VITALS: BP 106/71; PULSE 76
== END 2025-05-31 14:40 | disposition home or self-care (01) | DRG 806 ==
LOC: 4S1 07:30 → 4E2 16:37